=== PATIENT | male | born 1995 | race Caucasian/White ===

== ENCOUNTER 2021-05-23 02:08 | Emergency (ER) | payer OTHER ==
[2021-05-23 02:25] LABS: HEMOGLOBIN 17.3 gm/dl (14.0-17.5); RED BLOOD COUNT 5.47 M/UL (4.20-5.50); WHITE BLOOD COUNT 9.4 K/UL (4.5-11.0)
[2021-05-23 02:45] LABS: BUN/CREATININE RATIO 10 (0-10)
== END 2021-05-23 06:00 | disposition home or self-care (01) ==
LOC: ER1 02:08
PROVIDERS: Student in an Organized Health Care Education/Training Program
DX: S09.90XA Unspecified injury of head, initial encounter (principal); S00.83XA Contusion of other part of head, initial encounter; S70.02XA Contusion of left hip, initial encounter; M54.2 Cervicalgia; M54.9 Dorsalgia, unspecified; V49.40XA Driver injured in collision with unspecified motor vehicles in traffic accident, initial encounter
CPT/HCPCS: 70450; 71045; 71260; 72125; 72170; 80053; 80307; 81001; 83605; 85025; 85610; 85730; 86850; 86900; 86901; 99284; G0480; J3010; Q9967